=== PATIENT | female | born 1935 | race Caucasian/White ===

== ENCOUNTER 2016-08-14 16:03 | Emergency (ER) | payer MEDICARE, OTHER ==
[2016-08-14 17:12] LABS: CHLORIDE,CL 101 mmol/L (98-107); SODIUM,NA 134 mmol/L (136-145)
--- NOTE | 2016-08-14 17:22 | EDM.PDOC ---
ED HISTORY OF PRESENT ILLNESS - General Chief Complaint: Chest Pain Stated Complaint: Chest Pain Time Seen by Provider: 08/14/16 16:35 Source of Information: Reports: Patient History Limitations: Reports: No limitations - History of Present Illness INITIAL COMMENTS - FREE TEXT/NARRATIVE: Acute onset of pain in back. Extended up to neck then to front of chest. Pain is now resolved. No previous hx/o same in past. No cough No fever No nausea Timing/Duration: Reports: Hour(s): Location, General: Reports: chest, back Quality: Reports: Ache Improves with: Reports: None Worsens with: Reports: None - Related Data Allergies/ADRs: Allergies Allergy/AdvReac Type Severity Reaction Status Date / Time No Known Allergies Allergy Verified 04/27/16 09:32 Home Meds: Home Meds clonazePAM [Clonazepam] 1 tab PO BEDTIME 04/27/16 [History] Aspirin [Children's Aspirin] 81 mg PO QAM 08/14/16 [History] Biotin 5,000 mcg PO QPM 08/14/16 [History] Calcium Carbonate/Vitamin D3 [Calcium 600 + Vit D Tablet] 1 tab PO QPM 08/14/16 [History] Cholecalciferol (Vitamin D3) [Vitamin D3] 2,000 units PO DAILY 08/14/16 [History ] Cinnamon Bark [Cinnamon] 1,000 mg PO DAILY 08/14/16 [History] Cyanocobalamin (Vitamin B12) [Vitamin B12] 1,000 mcg PO QAM 08/14/16 [History] Gluc 2KCl/Chondr/Jered Hy/Hy Ac [Glucosamine & Chondroitin Cap] 1 cap PO DAILY [History] Lutein 1 tab PO QPM 08/14/16 [History] Magnesium Oxide [Magnesium] 1 tab PO QPM 08/14/16 [History] Medroxyprogesterone Acet [IJD: Provera] 10 mg PO QPM 08/14/16 [History] [place]-3S/DHA/Epa/Fish Oil [Fish Oil [place]-3 Softgel] 1 cap PO QPM 08/14/16 [ History] Vitamin E 400 unit PO QAM 08/14/16 [History] Past Medical History Cardiovascular History: Reports: High cholesterol, Hypertension Musculoskeletal History: Reports: Osteoporosis Social & Family History - Tobacco Use Smoking Status *Q: Never Smoker Second Hand Smoke Exposure: No - Caffeine Use Caffeine Use: Reports: None - Recreational Drug Use Recreational Drug Use: No ED ROS GENERAL - Review of Systems Review Of Systems: See Below Cardiovascular: Reports: Chest pain ED EXAM, GENERAL - Physical Exam Exam: See Below Exam Limited By: No limitations General Appearance: alert, no apparent distress Respiratory/Chest: lungs clear, normal breath sounds Cardiovascular: regular rate, rhythm Back Exam: normal inspection Extremities: normal inspection Course - Vital Signs Last Recorded V/S: Last Vital Signs Temp 37.2 C 08/14/16 16:04 Pulse 68 08/14/16 16:04 Resp 20 08/14/16 16:04 BP 188/76 H 08/14/16 16:04 Pulse Ox 100 08/14/16 16:30 - Orders/Labs/Meds Orders: Active Orders 24 hr Category Date Time Status EKG Documentation Completion [RC] ASDIRECTED Care 08/14/16 16:42 Active Chest 1V Frontal [CR] Stat Exams 08/14/16 16:42 Taken Labs: Laboratory Tests 08/14/16 08/14/16 Range/Units 16:40 16:40 WBC 6.4 (4.0-10.2) K/uL RBC 3.88 (3.77-5.09) M/uL Hgb 12.7 (11.7-15.5) g/dL Hct 38.8 (34.0-46.0) % MCV 100.0 H (84.0-98.0) fL MCH 32.7 (28.2-33.3) pg MCHC 32.7 (31.7-36.0) g/dL RDW 11.7 (11.2-14.1) % Plt Count 275 (150-350) K/uL Neut % (Auto) 57.6 (45.0-80.0) % Lymph % (Auto) 27.1 (10.0-50.0) % [place] % (Auto) 11.7 (2.0-14.0) % Eos % (Auto) 3.1 (0.0-5.0) % Baso % (Auto) 0.5 (0.0-2.0) % Neut # (Auto) 3.70 (1.40-7.00) K/uL Lymph # (Auto) 1.74 (0.50-3.50) K/uL [place] # (Auto) 0.75 (0.00-1.00) K/uL Eos # (Auto) 0.20 (0.00-0.50) K/uL Baso # (Auto) 0.03 (0.00-0.20) K/uL Sodium 134 L (136-145) mmol/L Potassium 3.5 (3.5-5.1) mmol/L Chloride 101 (98-107) mmol/L Carbon Dioxide 24.4 (21.0-32.0) mmol/L BUN 15 (7-18) mg/dL Creatinine 0.69 (0.51-1.17) mg/dL Est Cr Clr Drug Dosing 52.66 mL/min Estimated GFR (MDRD) > 60 mL/min Glucose 126 H (74-106) mg/dL Calcium 8.4 L (8.5-10.1) mg/dL Total Bilirubin 0.2 (0.2-1.0) mg/dL AST 18 (15-37) U/L ALT 19 (12-78) U/L Alkaline Phosphatase 49 (46-116) IU/L Troponin I 0.003 (0.000-0.056) ng/mL Total Protein 7.3 (6.4-8.2) g/dL Albumin 3.5 (3.4-5.0) g/dL - Re-Assessments/Exams Free Text/Narrative Re-Assessment/Exam: 08/14/16 17:19 Pt stable in ER No recurrence of pain Departure - Departure Time of Disposition: 17:30 Disposition: Home, Self-Care 01 Clinical Impression: Chest pain Qualifiers: Chest pain type: unspecified Qualified Code(s): R07.9 - Chest pain, unspecified Forms: ED Department Discharge - My Orders Last 24 Hours: My Active Orders 08/14/16 16:42 EKG Documentation Completion [RC] ASDIRECTED Chest 1V Frontal [CR] Stat - Assessment/Plan Last 24 Hours: My Active Orders 08/14/16 16:42 EKG Documentation Completion [RC] ASDIRECTED Chest 1V Frontal [CR] Stat
[2016-08-14 17:53] VITALS: BP 159/66
== END 2016-08-14 17:30 | disposition home or self-care (01) ==
LOC: LL.ED 16:03
DX: R07.9 Chest pain, unspecified (principal); I10 Essential (primary) hypertension; E78.00 Pure hypercholesterolemia, unspecified; Z79.82 Long term (current) use of aspirin; Z79.899 Other long term (current) drug therapy
CPT/HCPCS: 36415; 71010; 80053; 84484; 85025; 93005; 99283; 99284

== ENCOUNTER 2017-10-25 08:50 | Day surgery (SDC) | payer MEDICARE, OTHER ==
[~2017-10-25 08:50] MED LIST: Lactated Ringers 1,000 ML IV SCH; Midazolam 1 MG/ML 2 ML SDV ONE; Propofol 200 MG/20 ML SDV ONE; Sodium Chloride 0.9% 10 ML Syringe FLUSH PRN; fentaNYL 100 MCG/2 ML SDV ONE
--- NOTE | 2017-10-25 09:51 | PCM.HPR ---
H & P Addendum review - H & P Addendum Review Date of Original H & P: 10/18/17 Date Reviewed: 10/25/17 Time Reviewed: 09:51 Patient was Examined: No Changes
[2017-10-25] MEDS ORDERED: Midazolam 1 MG/ML 2 ML SDV ONE (09:53)
[2017-10-25] MEDS ORDERED: Propofol 200 MG/20 ML SDV ONE (09:53)
[2017-10-25] MEDS ORDERED: fentaNYL 100 MCG/2 ML SDV ONE (09:53)
--- NOTE | 2017-10-25 10:18 | PCM.OPNOTE ---
- General Post-Op/Procedure Note Date of Surgery/Procedure: 10/25/17 Operative Procedure(s): Colonoscopy Findings: Normal Pre Op Diagnosis: Hx Polyps Post-Op Diagnosis: Same Anesthesia Technique: JENI Primary Surgeon: Dharmesh Fierro Anesthesia Provider: Estefania Martinez Complications: None Condition: Good
[2017-10-25 10:30] VITALS: BP 141/69
--- NOTE | 2017-10-26 08:05 | OR ---
Date of Procedure: 10/25/2017 PREOPERATIVE DIAGNOSIS: History of colon polyps. POSTOPERATIVE DIAGNOSIS: Normal colonoscopy. PROCEDURE: Colonoscopy. ANESTHESIA: IV sedation. PROCEDURE: The patient was brought to the procedure room, where she was placed on the left side and IV sedation administered. Digital rectal exam was performed which was normal. Colonoscope was inserted and advanced to the level of the cecum without difficulty. Cecal position was confirmed by identifying the appendiceal lumen and the ileocecal valve. Prep was good and surfaces were well visualized. Upon withdrawing the scope, the ascending, transverse, and descending colon were normal in appearance. Sigmoid colon and rectum were normal. Retroflexion was normal. Air was removed. The scope withdrawn. The patient tolerated the procedure well and returned to recovery in stable condition. No further colon screening is necessary due to patient's age. JAMES GUZMAN MD /[id number]
== END 2017-10-25 11:25 | disposition home or self-care (01) ==
LOC: LL.SDS 08:50
PROVIDERS: ATTEND Surgery
DX: Z12.11 Encounter for screening for malignant neoplasm of colon (principal); I10 Essential (primary) hypertension; E78.5 Hyperlipidemia, unspecified; D64.9 Anemia, unspecified; M35.3 Polymyalgia rheumatica; Z79.82 Long term (current) use of aspirin; Z79.899 Other long term (current) drug therapy; Z88.0 Allergy status to penicillin; Z86.010 Personal history of colon polyps
CPT/HCPCS: 00812; J2250; J2704; J3010; J7120

== ENCOUNTER 2019-11-12 10:45 | Emergency (ER) | payer MEDICARE, OTHER ==
[2019-11-12] MEDS: GI Cocktail Oral Solution 30 ML PO ONE (11:06)
[2019-11-12 11:59] LABS: CHLORIDE,CL 100 mmol/L (98-107); SODIUM,NA 136 mmol/L (136-145)
[2019-11-12 12:00] VITALS: BP 161/68; PULSE 59
--- NOTE | 2019-11-12 12:03 | EDM.PDOC ---
ED HPI GENERAL MEDICAL PROBLEM - General Chief Complaint: Chest Pain Stated Complaint: chest pain, throat burning Time Seen by Provider: 11/12/19 11:00 Source of Information: Reports: Patient History Limitations: Reports: No Limitations - History of Present Illness INITIAL COMMENTS - FREE TEXT/NARRATIVE: Pt presents with substernal chest pain and a burning sensation in throat Began earlier today Went for a walk this AM and had no pain No fever No cough Onset: Today, Gradual Duration: Hour(s):, Resolved Prior to Arrival Location: Reports: Chest Left Chest Pain Score (Numeric/FACES): 2 - Related Data Allergies Allergy/AdvReac Type Severity Reaction Status Date / Time amoxicillin Allergy Rash Verified 11/12/19 10:49 Home Meds: Home Meds clonazePAM [Clonazepam] 1 tab PO BEDTIME PRN 04/27/16 [History] Aspirin [Children's Aspirin] 0.5 tab PO QAM 08/14/16 [History] Biotin 5,000 mcg PO QPM 08/14/16 [History] Calcium Carbonate/Vitamin D3 [Calcium 600 + Vit D Tablet] 1 tab PO BID@18,05/02 [History] Cholecalciferol (Vitamin D3) [Vitamin D3] 2,000 units PO DAILY 08/14/16 [History] Cinnamon Bark [Cinnamon] 1,000 mg PO DAILY 08/14/16 [History] Cyanocobalamin (Vitamin B12) [Vitamin B12] 1,000 mcg PO QAM 08/14/16 [History] Magnesium Oxide [Magnesium] 1 tab PO QPM 08/14/16 [History] Pravastatin Sodium 10 mg PO BEDTIME 10/25/17 [History] Glucosamine/D3/[place]oswellia Maria Elena [Osteo Bi-Flex Caplet] 1 tab PO DAILY 11/12/19 [History] Vitamin E 100 unit PO DAILY 11/12/19 [History] Past Medical History HEENT History: Reports: Cataract Cardiovascular History: Reports: High Cholesterol, Hypertension Gastrointestinal History: Reports: Celiac Disease Musculoskeletal History: Reports: Other (See Below) Other Musculoskeletal History: Polymyalgia rheumatica - Infectious Disease History Infectious Disease History: Reports: Chicken Pox, Measles, Rubella - Past Surgical History HEENT Surgical History: Reports: Cataract Surgery, Detached Retina Social & Family History - Tobacco Use Smoking Status *Q: Never Smoker Second Hand Smoke Exposure: No - Caffeine Use Caffeine Use: Reports: Coffee Caffeine Use Comment: occasional coffee - Recreational Drug Use Recreational Drug Use: No ED ROS GENERAL - Review of Systems Review Of Systems: See Below HEENT: Reports: No Symptoms Respiratory: Reports: No Symptoms Cardiovascular: Reports: Chest Pain GI/Abdominal: Reports: No Symptoms Musculoskeletal: Reports: No Symptoms ED EXAM, GENERAL - Physical Exam Exam: See Below Exam Limited By: No Limitations Throat/Mouth: Normal Oropharynx Neck: Supple Respiratory/Chest: Lungs Clear Cardiovascular: Regular Rate, Rhythm GI/Abdominal: Soft, Non-Tender Course - Vital Signs Last Recorded V/S: Last Vital Signs Temp 98.2 F 11/12/19 10:45 Pulse 59 L 11/12/19 11:59 Resp 16 11/12/19 11:59 BP 161/68 H 11/12/19 11:59 Pulse Ox 97 11/12/19 11:59 - Orders/Labs/Meds Orders: Active Orders 24 hr Category Date Time Status EKG Documentation Completion [RC] ASDIRECTED Care 11/12/19 10:56 Active Chest 2V [CR] Stat Exams 11/12/19 10:58 Taken CKMB [CHEM] Stat Lab 11/12/19 11:05 Results CMP [COMPREHENSIVE METABOLIC PN,CMP] [CHEM] Stat Lab 11/12/19 11:05 Results TROPONIN I [CHEM] Stat Lab 11/12/19 11:05 Results Labs: Laboratory Tests 11/12/19 11/12/19 Range/Units 11:05 11:05 WBC 6.4 (4.0-10.2) K/uL RBC 3.85 (3.77-5.09) M/uL Hgb 13.0 (11.7-15.5) g/dL Hct 38.9 (34.0-46.0) % MCV 101.0 H (84.0-98.0) fL MCH 33.8 H (28.2-33.3) pg MCHC 33.4 (31.7-36.0) g/dL RDW 11.6 (11.2-14.1) % Plt Count 260 (150-350) K/uL MPV 9.40 (7.00-11.50) fL Sodium 136 (136-145) mmol/L Potassium 4.4 (3.5-5.1) mmol/L Chloride 100 (98-107) mmol/L Carbon Dioxide 27.1 (21.0-32.0) mmol/L BUN 18 (7-18) mg/dL Creatinine 0.76 (0.51-1.17) mg/dL Est Cr Clr Drug Dosing 45.58 mL/min Estimated GFR (MDRD) > 60 mL/min Glucose 97 (74-106) mg/dL Calcium 9.2 (8.5-10.1) mg/dL Total Bilirubin 0.4 (0.2-1.0) mg/dL AST 18 (15-37) U/L ALT 18 (12-78) U/L Alkaline Phosphatase 49 (46-116) IU/L CK-MB (CK-2) 0.80 (0.00-3.60) ng/mL Troponin I 0.000 (0.000-0.056) ng/mL Total Protein 7.9 (6.4-8.2) g/dL Albumin 3.8 (3.4-5.0) g/dL Meds: Medications Discontinued Medications Generic Name Dose Route Start Last Admin Trade Name Edna PRN Reason Stop Dose Admin Al Hydroxide/Mg Hydroxide 30 ml 11/12/19 11:01 11/12/19 11:06 Gi Cocktail PO 11/12/19 11:02 30 ml ONETIME ONE Administration - Re-Assessments/Exams Free Text/Narrative Re-Assessment/Exam: 11/12/19 12:02 Pt stable in ER No symptoms currently Departure - Departure Time of Disposition: 12:10 Disposition: Home, Self-Care 01 Clinical Impression: Atypical chest pain Instructions: Nonspecific Chest Pain, Adult, [id number] Referrals: Monika Shipley PA [Primary Care Provider] - Additional Instructions: Follow up in clinic Sepsis Event Note (ED) - Evaluation Sepsis Screening Result: No Definite Risk - Focused Exam Vital Signs: Vital Signs Temp Pulse Resp BP Pulse Ox 11/12/19 11:59 59 L 16 161/68 H 97 11/12/19 11:41 62 16 174/63 H 95 11/12/19 11:21 61 19 159/57 H 97 11/12/19 10:56 62 15 179/62 H 96 11/12/19 10:45 98.2 F 96 13 174/62 H 96 - My Orders Last 24 Hours: My Active Orders 11/12/19 10:56 EKG Documentation Completion [RC] ASDIRECTED 11/12/19 10:58 Chest 2V [CR] Stat 11/12/19 11:05 CKMB [CHEM] Stat CMP [COMPREHENSIVE METABOLIC PN,CMP] [CHEM] Stat TROPONIN I [CHEM] Stat - Assessment/Plan Last 24 Hours: My Active Orders 11/12/19 10:56 EKG Documentation Completion [RC] ASDIRECTED 11/12/19 10:58 Chest 2V [CR] Stat 11/12/19 11:05 CKMB [CHEM] Stat CMP [COMPREHENSIVE METABOLIC PN,CMP] [CHEM] Stat TROPONIN I [CHEM] Stat
== END 2019-11-12 12:20 | disposition home or self-care (01) ==
LOC: LL.ED 10:45
DX: R07.89 Other chest pain (principal); E78.00 Pure hypercholesterolemia, unspecified; I10 Essential (primary) hypertension; Z88.1 Allergy status to other antibiotic agents; Z79.82 Long term (current) use of aspirin; Z79.899 Other long term (current) drug therapy
CPT/HCPCS: 36415; 71046; 80053; 82553; 84484; 85027; 93005; 99283; 99285-25; A9270-GY

== ENCOUNTER 2024-09-01 03:12 | Emergency (ER) | payer MEDICARE, OTHER ==
[2024-09-01] MEDS: cloNIDine 0.1 MG Tab PO ONE (04:00)
[2024-09-01] MEDS: Baclofen 10 MG Tab PO ONE (04:32)
[2024-09-01 05:31] VITALS: BP 133/58; PULSE 45
== END 2024-09-01 05:25 | disposition home or self-care (01) ==
LOC: LL.ED 03:12
DX: M62.830 Muscle spasm of back (principal); I10 Essential (primary) hypertension; E78.00 Pure hypercholesterolemia, unspecified; Z79.899 Other long term (current) drug therapy; Z88.0 Allergy status to penicillin
CPT/HCPCS: 72100; 99283; A9270-GY

== ENCOUNTER 2024-10-07 09:11 | Emergency (ER) | payer MEDICARE, OTHER ==
[2024-10-07] MEDS ORDERED: Sodium Chloride 0.9% 10 ML Syringe FLUSH PRN (09:31)
[2024-10-07 10:00] LABS: BASOPHILS ABSOLUTE AUTO 0.08 K/uL (0.00-0.20); BASOPHILS PERCENT AUTO 1.5 % (0.0-2.0); EOSINOPHILS ABSOLUTE AUTO 0.22 K/uL (0.00-0.50); EOSINOPHILS PERCENT AUTO 4.1 % (0.0-5.0); IMMATURE GRAN ABSOLUTE AUTO 0.01 10^3/uL (0.00-0.04); IMMATURE GRAN PERCENT AUTO 0.2 % (0.0-0.4); LYMPHOCYTES PERCENT AUTO 22.2 % (10.0-50.0); MEAN CORPUSCULAR HEMOGLOBIN 33.9 pg (28.2-33.3); MEAN CORPUSCULAR HGB CONC 34.2 g/dL (31.7-36.0); MONOCYTES PERCENT AUTO 12.9 % (2.0-14.0); NEUTROPHILS PERCENT AUTO 59.1 % (45.0-80.0); PLATELET COUNT,PLT 256 K/uL (150-350); RED BLOOD CELL COUNT 3.84 M/uL (3.77-5.09); RED CELL DISTRIBUTION WIDTH 11.8 % (11.2-14.1); WHITE BLOOD CELL COUNT,WBC 5.4 K/uL (4.0-10.2)
[2024-10-07 10:27] LABS: ALANINE AMINOTRANSFERASE,ALT 25 U/L (12-78); ALBUMIN 3.4 g/dL (3.4-5.0); ALKALINE PHOSPHATASE 39 IU/L (46-116); ANION GAP 9.6 meq/L (7-15); ASPARTATE AMNIOTRANSFERASE,AST 23 U/L (15-37); BILIRUBIN TOTAL 0.5 mg/dL (0.2-1.0); BLOOD UREA NITROGEN,BUN 24 mg/dL (7-18); C-REACTIVE PROTEIN 0.14 mg/dL (0.05-0.30); CARBON DIOXIDE,CO2 27.4 mmol/L (21.0-32.0); CHLORIDE,CL 101 mmol/L (98-107); CREATININE 0.99 mg/dL (0.51-1.17); GLUCOSE RANDOM 93 mg/dL (70-99); POTASSIUM,K 4.5 mmol/L (3.5-5.1); PRO B-TYPE NATRIUR PEPT,BNPPRO 124 pg/mL (0-125); PROTEIN TOTAL,TP 7.3 g/dL (6.4-8.2); SODIUM,NA 138 mmol/L (136-145)
[2024-10-07 10:28] LABS: ESTIMATED GFR 55 mL/min (>=60)
[2024-10-07 10:42] LABS: APPEARANCE,URINE CLOUDY; BILIRUBIN,URINE NEGATIVE (NEGATIVE); COLOR,URINE YELLOW; GLUCOSE,URINE NEGATIVE (NEGATIVE); KETONES,URINE NEGATIVE (NEGATIVE); LEUKOCYTE ESTERASE,URINE NEGATIVE (NEGATIVE); NITRITE,URINE NEGATIVE (NEGATIVE); OCCULT BLOOD,URINE NEGATIVE (NEGATIVE); PH,URINE 5.5 (5.0-9.0); PROTEIN,URINE NEGATIVE (NEGATIVE); UROBILINOGEN,URINE 0.2 E.U./dL (0.2-1.0)
[2024-10-07] MEDS: Iopamidol 612 MG/ML 100 ML Bottle IVPUSH STA (10:55)
[2024-10-07 10:58] VITALS: BP 161/63; PULSE 54
== END 2024-10-07 12:22 | disposition home or self-care (01) ==
LOC: LL.ED 09:11
DX: R07.89 Other chest pain (principal); I10 Essential (primary) hypertension; E78.00 Pure hypercholesterolemia, unspecified; Z88.0 Allergy status to penicillin; Z79.899 Other long term (current) drug therapy
CPT/HCPCS: 36415; 71046; 71260; 80053; 81003; 83605; 83735; 83880; 84484; 85025; 85379; 86140; 93005; 99285; Q9967; 93010; 99284